=== PATIENT | male | born 1995 | race Caucasian/White ===

== ENCOUNTER 2018-03-23 06:38 | Emergency (ER) | payer OTHER ==
[~2018-03-23] VITALS: Ht 190.5 cm; Wt 93.2 kg
[2018-03-23] MEDS ORDERED: NORCOTAB PO (07:39)
[2018-03-23 07:42] VITALS: BP 126/77
--- NOTE | 2018-03-23 08:02 | REP ---
Clinical: Trauma. Technique: AP, lateral, bilateral oblique views of the left ankle. Findings: Lateral soft tissue swelling consist with inversion injury. No acute fracture or dislocation. Joint spaces and ankle mortise are intact. Impression: No acute fracture. Lateral swelling. Electronically Signed by Andrea Uriarte MD 03/23/2018 07:53 A
== END 2018-03-23 07:53 | disposition home or self-care (01) ==
LOC: M ED 06:38
DX: S99.912A Unspecified injury of left ankle, initial encounter (principal); X50.1XXA Overexertion from prolonged static or awkward postures, initial encounter; Y92.098 Other place in other non-institutional residence as the place of occurrence of the external cause; F17.200 Nicotine dependence, unspecified, uncomplicated